=== PATIENT | female | born 2005 | race Caucasian/White ===

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

== ENCOUNTER 2023-04-24 15:15 | Emergency (ER) | payer SELFPAY ==
[2023-04-24 15:28] VITALS: BP 106/75; PULSE 76; RESP 20; TEMP 36.8; O2SAT 100
--- NOTE | 2023-04-24 15:40 | W.ED.SPORTPH ---
[facility] Past Medical History Medical History ADHD Allergies Anxiety Asthma Low vitamin D level Surgical History Surgical History History of tonsillectomy and adenoidectomy (~2005) Family History Family History Mother Anxiety Asthma GERD (gastroesophageal reflux disease) Allergies Grandparent PAD (peripheral artery disease) Gastric bleeding Social History Social History Smoking status: Never smoker Second hand tobacco smoke exposure: No Alcohol intake: never Lack of Transportation: No Lack of Food: Never True Current Housing: I Have Housing Concerned About Future Housing: No Difficulty Paying Gas/Electric Bills: No Difficulty Paying for Meds: No Currently Unemployed: No Education: High School Diploma/GED Difficulty w/ Childcare or Family Care: No Living arrangements: with family Occupation/Education: student Gender identity (if verbalized by the patient): Female Comments PT SIGNED IN AT [facility] AND HAD DOCTOR'S APPT UPSTAIRS WITH HER PCP. WAS AT WRONG PL[facility]. SHE WAS NOT EXAMINED OR TREATED AT [facility] Allergies: Allergies Allergy/AdvReac Type Severity Reaction Status Date / Time No Known Allergies Allergy Verified 04/24/23 16:09 Home Medications: Home Medications Medication Instructions Recorded Confirmed norelgestromin 150 mcg-e.estradiol 1 patch topical WEEKLY 04/24/23 04/24/23 35 mcg/24 hr weekly transderm patch (Xulane) Vital Signs: Vital Signs Temperature 36.8 C 04/24/23 15:28 Pulse Rate 76 04/24/23 15:28 Respiratory Rate 20 04/24/23 15:28 Blood Pressure 106/75 04/24/23 15:28 Pulse Oximetry 100 04/24/23 15:28 Temperature 36.8 C 04/24/23 15:28 Pulse Rate 76 04/24/23 15:28 Respiratory Rate 20 04/24/23 15:28 Blood Pressure 106/75 04/24/23 15:28 Pulse Oximetry 100 04/24/23 15:28 Services Provided Sports Physical Completed: Felicita Juarez was seen today, 04/24/23, for a sports physical. The paper physical form was completed and scanned into the chart. The original paper physical form was given to the patient for submission to their school. Discharge Plan Discharge Clinical Impression: Sports physical Patient Disposition: Other Condition: Stable Instructions: Antibiotic Form Prescriptions: No Action norelgestromin-ethin.estradiol [Xulane] 150-35 mcg/24 hr patch weekly 1 patch topical WEEKLY Follow-up/Referrals: UNKNOWN,DOCTOR [Primary Care Provider] -
--- NOTE | 2023-04-24 15:49 | PC.NURSE ---
PT ACTUALLY NEEDS A DOD PHYSICAL, UNABLE TO COMPLETE PHYSICAL.
== END 2023-04-24 15:54 | disposition left against medical advice (07) ==
DX: Z02.5 Encounter for examination for participation in sport (principal)
CPT/HCPCS: 99199